=== PATIENT | male | born 1990 | race Caucasian/White ===

== ENCOUNTER 2019-07-05 20:58 | Observation (INO) | payer BC ==
--- NOTE | 2019-07-05 21:17 | ER Document Report ---
ED Medical Screen (RME) - General Chief Complaint: Abdominal Pain Stated Complaint: ABDOMINAL PAIN/COLD SWEATS,DIZZINESS Time Seen by Provider: 07/05/19 21:10 Mode of Arrival: Wheelchair Information source: Patient Notes: 29-year-old male presented to ED for complaint of abdominal pain nausea no vomiting no diarrhea and dizziness. He states he also has had a cough cold congestion runny nose sore throat and it all started this morning. He states he has felt like he has had a fever but has not taken his temperature. He does not have a fever at this time. Patient states he felt like his throat was closing up there he does not have any compromised airway he does have postnasal drip with a red oral mucosa. I have greeted and performed a rapid initial assessment of this patient. A comprehensive ED assessment and evaluation of the patient, analysis of test results and completion of medical decision making process will be conducted by an additional ED providers. TRAVEL OUTSIDE OF THE [place] IN LAST 30 DAYS: No - Related Data Allergies/Adverse Reactions: Penicillins Allergy (Verified 07/05/19 21:09) Physical Exam - Vital signs Vitals: Temp Pulse Resp BP Pulse Ox 98.5 F 53 L 16 138/68 H 98 07/05/19 21:07 07/05/19 21:07 07/05/19 21:07 07/05/19 21:07 07/05/19 21:07 Course - Vital Signs Vital signs: Temp Pulse Resp BP Pulse Ox 98.5 F 53 L 16 138/68 H 98 07/05/19 21:07 07/05/19 21:07 07/05/19 21:07 07/05/19 21:07 07/05/19 21:07
[2019-07-05 21:46] LABS: A TYPE INFLUENZA AG NEGATIVE (NEGATIVE); B INFLUENZA AG NEGATIVE (NEGATIVE)
--- NOTE | 2019-07-05 21:49 | RADIOLOGY REPORT (SQ) ---
EXAM DESCRIPTION: XR ABDOMEN SUPINE AND ERECT WITH CHEST (ABD ACUTE SERIES) COMPLETED DATE/TME: 07/05/2019 21:15 CLINICAL HISTORY: 29 years, Male, Generalized abdominal pain COMPARISON: None. NUMBER OF VIEWS: 4 TECHNIQUE: Single view chest 3 views abdomen LIMITATIONS: None. FINDINGS: Cardiomediastinal silhouette is normal. Lungs are clear. No obstruction or free air. Relatively gasless abdomen. Visualized bones are unremarkable. IMPRESSION: Unremarkable exam. The cause of the patient's abdominal pain is not identified on this examination. copyright 2010 [employer]- All Rights Reserved
[2019-07-05 22:13] LABS: ABSOLUTE LYMPHOCYTES (AUTO) 0.7 10^3/uL (0.5-4.7); ABSOLUTE MONOCYTES (AUTO) 0.5 10^3/uL (0.1-1.4); ABSOLUTE NEUT (AUTO) 11.6 10^3/uL (1.7-8.2); BASOPHILS % (AUTO) 0.1 % (0-2); HEMATOCRIT 47.4 % (37.9-51.0); HEMOGLOBIN 16.7 g/dL (13.5-17.0); LYMPHOCYTES % (AUTO) 5.3 % (13-45); MEAN CORPUSCULAR HEMOGLOBIN 30.4 pg (27.0-33.4); MEAN CORPUSCULAR HGB CONC 35.2 g/dL (32.0-36.0); MEAN CORPUSCULAR VOLUME 86 fl (80-97); PLATELET COUNT 217 10^3/uL (150-450); RED BLOOD COUNT 5.48 10^6/uL (4.35-5.55); RED CELL DISTRIBUTION WIDTH 12.6 % (11.5-14.0); SEGMENTED NEUTROPHILS % (AUTO) 90.6 % (42-78); TOTAL CELLS COUNTED % (AUTO) 100 %; WHITE BLOOD COUNT 12.8 10^3/uL (4.0-10.5)
[2019-07-05 22:18] LABS: APPEARANCE,URINE CLEAR; BILIRUBIN,URINE NEGATIVE (NEGATIVE); COLOR,URINE YELLOW; GLUCOSE, URINE NEGATIVE (NEGATIVE); KETONES,URINE 80 mg/dL (NEGATIVE); PROTEIN,URINE 100 mg/dL (NEGATIVE)
[2019-07-05 22:32] LABS: ALBUMIN 4.8 g/dL (3.5-5.0); ALKALINE PHOSPHATASE 61 U/L (38-126); ANION GAP 14 (5-19); ASPARTATE AMINO TRANSFERASE 28 U/L (17-59); BILIRUBIN,DIRECT 0.3 mg/dL (0.0-0.4); BILIRUBIN,TOTAL 0.6 mg/dL (0.2-1.3); BLOOD UREA NITROGEN 14 mg/dL (7-20); CALCIUM 9.3 mg/dL (8.4-10.2); CARBON DIOXIDE 27 mmol/L (22-30); CHLORIDE 96 mmol/L (98-107); GLUCOSE 158 mg/dL (75-110); POTASSIUM 4.5 mmol/L (3.6-5.0); TOTAL PROTEIN 8.1 g/dL (6.3-8.2)
--- NOTE | 2019-07-06 00:38 | RADIOLOGY REPORT (SQ) ---
EXAM: CT Abdomen and Pelvis With Intravenous Contrast EXAM DATE/TIME: 07/05/2019 11:59 PM CLINICAL HISTORY: The patient is 29 years old and is Male; eval for appendicitis , right lower quadrant pain TECHNIQUE: Axial computed tomography images of the abdomen and pelvis with intravenous contrast. Sagittal and coronal reformatted images were created and reviewed. Delayed images were obtained. This CT exam was performed using one or more of the following dose reduction techniques: automated exposure control, adjustment of the mA and/or kV according to patient size, and/or use of iterative reconstruction technique. COMPARISON: No relevant prior studies available. FINDINGS: LUNG BASES: Unremarkable. No mass. No consolidation. ABDOMEN: LIVER: Unremarkable. No obvious mass. GALLBLADDER AND BILE DUCTS: Unremarkable. No calcified stones. No significant biliary ductal dilatation. PANCREAS: Unremarkable. No ductal dilation. No obvious mass. SPLEEN: Unremarkable. No splenomegaly. ADRENALS: Unremarkable. No adrenal nodules or masses identified. KIDNEYS AND URETERS: Unremarkable. No solid mass. No hydronephrosis. STOMACH AND BOWEL: No evidence of bowel obstruction. No significant bowel wall thickening appreciated. PELVIS: APPENDIX: The appendix is fluid-filled and dilated, measuring 1 cm. Small appendicoliths noted. There is also mild inflammatory stranding adjacent to the distal aspect of the appendix. Findings are compatible with acute appendicitis. BLADDER: Unremarkable. No obvious mass. REPRODUCTIVE: Unremarkable as visualized. ABDOMEN and PELVIS: INTRAPERITONEAL SPACE: Unremarkable. No free air. No abscess. BONES/JOINTS: No acute fracture. No dislocation. SOFT TISSUES: Tiny fat-containing umbilical hernia. VASCULATURE: Unremarkable. No abdominal aortic aneurysm. LYMPH NODES: No significant lymph node enlargement. IMPRESSION: Findings compatible with acute appendicitis. No evidence of rupture.
[2019-07-06] MEDS ORDERED: CLINDAMYCIN 600 MG/D5W RTU 600 MG/50 ML RTUPB IV ONE (01:00)
[2019-07-06] MEDS ORDERED: MORPHINE SULFATE 10 MG/ML INJ IV ONE (01:01)
[2019-07-06] MEDS ORDERED: ONDANSETRON HCL INJ/PF 4 MG/2 ML SDV IV ONE (01:02)
[2019-07-06] MEDS ORDERED: NORMAL SALINE 1000 ML 1,000 ML IV ONE (01:02)
[2019-07-06] MEDS ORDERED: ONDANSETRON HCL INJ/PF 4 MG/2 ML SDV IV PRN (01:25)
[2019-07-06] MEDS ORDERED: RINGERS SOLUTION,LACTATED 1,000 ML IV PRN (01:26)
--- NOTE | 2019-07-06 01:35 | PDOC H&P ---
History of Present Illness Patient complains of: Abdominal pain History of Present Illness: LISA HICKMAN is a 29 year old male Presents emergency department via ground rescue complaining of acute onset abdominal pain approximately 8:00 this morning. This is associated with progression, periumbilical in nature, anorexia but no vomiting, some nausea. He also has some sore throat and thought he was developing a cold. In the emergency department he was found to have abdominal tenderness, poorly localized, with a mild leukocytosis. A CT scan of the abdomen and pelvis showed findings consistent with early appendicitis. Surgery was consulted, patient was advised admission for definitive management. Past Medical History Medical History: None Past Surgical History Past Surgical History: Reports: None Social History Information Source: Patient Smoking Status: Never Smoker Electronic Cigarette use?: No Frequency of Alcohol Use: None Hx Recreational Drug Use: No Hx Prescription Drug Abuse: No Family History Family History: None Parental Family History Reviewed: No Children Family History Reviewed: No Sibling(s) Family History Reviewed.: No Medication/Allergy Home Medications: No Home Medications 07/05/19 Allergies/Adverse Reactions: Penicillins Allergy (Verified 07/05/19 21:09) Review of Systems Constitutional: PRESENT: as per HPI Eyes: ABSENT: visual disturbances Ears: ABSENT: hearing changes Cardiovascular: ABSENT: chest pain, dyspnea on exertion, edema, orthropnea, palpitations Respiratory: PRESENT: cough Gastrointestinal: PRESENT: as per HPI Genitourinary: ABSENT: dysuria, hematuria Musculoskeletal: ABSENT: joint swelling Integumentary: ABSENT: rash, wounds Neurological: ABSENT: abnormal gait, abnormal speech, confusion, dizziness, focal weakness, syncope Psychiatric: ABSENT: anxiety, depression, homidical ideation, suicidal ideation Endocrine: ABSENT: cold intolerance, heat intolerance, polydipsia, polyuria Hematologic/Lymphatic: ABSENT: easy bleeding, easy bruising Physical Exam Vital Signs: Temp Pulse Resp BP Pulse Ox 98.5 F 53 L 16 138/68 H 98 07/05/19 21:07 07/05/19 21:07 07/05/19 21:07 07/05/19 21:07 07/05/19 21:07 Intake & Output 07/04/19 07/05/19 07/06/19 06:59 06:59 06:59 Weight 88.451 kg General appearance: PRESENT: no acute distress Head exam: PRESENT: normocephalic Eye exam: PRESENT: EOMI Mouth exam: PRESENT: dry mucosa Neck exam: PRESENT: full ROM Respiratory exam: PRESENT: clear to auscultation lyle Cardiovascular exam: PRESENT: RRR Pulses: PRESENT: normal carotid pulses, normal radial pulses, normal femoral pulses, normal dorsalis pedis pul GI/Abdominal exam: PRESENT: other - Subtle right lower quadrant tenderness, no rigidity, peritoneal signs. No organomegaly. No hernias. Rectal exam: PRESENT: deferred Extremities exam: PRESENT: full ROM Musculoskeletal exam: PRESENT: full ROM Neurological exam: PRESENT: oriented to person, oriented to place, oriented to time, oriented to situation Psychiatric exam: PRESENT: appropriate affect Skin exam: PRESENT: dry Results Laboratory Results: 07/05/19 22:01 07/05/19 22:01 07/05/19 07/05/19 07/05/19 22:01 22:01 22:01 WBC 12.8 H RBC 5.48 Hgb 16.7 Hct 47.4 MCV 86 MCH 30.4 MCHC 35.2 RDW 12.6 Plt Count 217 Seg Neutrophils % 90.6 H Sodium 136.5 L Potassium 4.5 Chloride 96 L Carbon Dioxide 27 Anion Gap 14 BUN 14 Creatinine 0.85 Est GFR ( Amer) > 60 Glucose 158 H Calcium 9.3 Total Bilirubin 0.6 AST 28 Alkaline Phosphatase 61 Total Protein 8.1 Albumin 4.8 Lipase 67.5 Urine Color YELLOW Urine Appearance CLEAR Urine pH 5.0 Ur Specific [place] 1.040 Urine Protein 100 H Urine Glucose (UA) NEGATIVE Urine Ketones 80 H Urine Blood NEGATIVE Urine RBC (Auto) 0 Impressions: Acute Abdomen Series 07/05/19 21:15 IMPRESSION: Unremarkable exam. The cause of the patient's abdominal pain is not identified on this examination. copyright 2010 [email or web address]- All Rights Reserved Abdomen/Pelvis CT 07/05/19 23:36 IMPRESSION: Findings compatible with acute appendicitis. No evidence of rupture. Assessment & Plan - Diagnosis (1) Acute appendicitis Qualifiers: Acute appendicitis type: unspecified acute appendicitis type Qualified Code(s): K35.80 - Unspecified acute appendicitis Is this a current diagnosis for this admission?: Yes Plan: Impression: Patient has a clinical, laboratory, radiographic findings consistent with acute appendicitis, and dehydration. CT scan demonstrates dilation of the appendix, appendicolith, and periappendiceal stranding, no evidence of rupture. Plan: 1. Admit, IV fluids, n.p.o., intravenous antibiotics 2. We will bring team in at approximately 530 am to perform laparoscopic, possible open appendectomy, 30 minutes, possible drain, benefits and alternatives of the planned procedure explained to the patient including bleeding, infection, need for additional surgery. Patient expresses understanding agrees to proceed. (2) Dehydration Is this a current diagnosis for this admission?: Yes - Time Time Spent: 50 to 70 Minutes Critical Time spent with patient: 15-24 minutes Medications reviewed and adjusted accordingly: Yes Anticipated discharge: Home - Inpatient Certification Based on my medical assessment, after consideration of the patient's comorbidities, presenting symptoms, or acuity I expect that the services needed warrant INPATIENT care.: Yes I certify that my determination is in accordance with my understanding of Medicare's requirements for reasonable and necessary INPATIENT services [42 CFR 412.3e].: Yes Medical Necessity: Need For IV Fluids, Need for Pain Control, Need for IV Antibiotics, Need for Surgery
--- NOTE | 2019-07-06 02:01 | ER Document Report ---
ED General - General Chief Complaint: Abdominal Pain Stated Complaint: ABDOMINAL PAIN/COLD SWEATS,DIZZINESS Time Seen by Provider: 07/05/19 21:10 Mode of Arrival: Wheelchair Information source: Patient TRAVEL OUTSIDE OF THE [place] IN LAST 30 DAYS: No - HPI Onset: Other - started the morning of 07/05/19 Onset/Duration: Gradual Quality of pain: Achy, Cramping Severity: Moderate Pain Level: 4 Associated symptoms: Nausea, Other - decreased PO intake Exacerbated by: Food Relieved by: Denies Similar symptoms previously: No Recently seen / treated by doctor: No Notes: 29 year old male with no significant PMH here for abdominal pain and nausea which started around 8am on 07/05/19. The patient says he went to be the night before that fine but woke up with abdominal pain. He went to work the morning of 07/05/19 and had dizziness and more nausea. The patient did not have much of an appetite throughout the day either. The patient denies known sick contacts, recent travel, recent ingestion of uncooked foods. - Related Data Allergies/Adverse Reactions: Penicillins Allergy (Verified 07/05/19 21:09) Past Medical History - General Information source: Patient - Social History Smoking Status: Never Smoker Frequency of alcohol use: Occasional Drug Abuse: None Family History: None Patient has suicidal ideation: No Patient has homicidal ideation: No Past Surgical History: Reports: None Review of Systems - Review of Systems Constitutional: Other - decreased PO intake EENT: No symptoms reported Cardiovascular: No symptoms reported Respiratory: No symptoms reported Gastrointestinal: Abdominal pain, Nausea Genitourinary: No symptoms reported Male Genitourinary: No symptoms reported Musculoskeletal: No symptoms reported Skin: No symptoms reported Hematologic/Lymphatic: No symptoms reported Neurological/Psychological: No symptoms reported -: Yes All other systems reviewed and negative Physical Exam - Vital signs Vitals: Temp Pulse Resp BP Pulse Ox 98.5 F 53 L 16 138/68 H 98 07/05/19 21:07 07/05/19 21:07 07/05/19 21:07 07/05/19 21:07 07/05/19 21:07 - Notes Notes: GENERAL: Well-appearing, well-nourished and in no acute distress. HEAD: Atraumatic, normocephalic. EYES: Pupils equal round and reactive to light, extraocular movements intact, sclera anicteric, conjunctiva are normal. ENT: Nares patent, oropharynx clear without exudates. Moist mucous membranes. NECK: Normal range of motion, supple without lymphadenopathy or JVD. LUNGS: Breath sounds clear to auscultation bilaterally and equal. No wheezes rales or rhonchi. HEART: Regular rate and rhythm without murmurs, rubs or gallops. ABDOMEN: Soft, mild tenderness in epigastric area, normoactive bowel sounds. No guarding, no rebound. No masses appreciated. EXTREMITIES: Normal range of motion, no pitting or edema. No clubbing or cyanosis. NEUROLOGICAL: Cranial nerves II through XII grossly intact. Normal speech, normal gait. PSYCH: Normal mood, normal affect. SKIN: Warm, Dry, normal turgor, no rashes or lesions noted. Course - Re-evaluation Re-evalutation: 07/06/19 02:03 The patient has acute appendicitis on CT without perforation. Dr. Lockett was consulted and he saw the patient in the ER and admitted him to his service. The patient was given a dose of Clindamycin at the request of Dr. Lockett. - Vital Signs Vital signs: Temp Pulse Resp BP Pulse Ox 98 F 71 16 145/71 H 96 07/06/19 01:30 07/06/19 01:30 07/06/19 01:30 07/06/19 01:30 07/06/19 01:30 - Laboratory Result Diagrams: 07/05/19 22:01 07/05/19 22:01 Laboratory results interpreted by me: 07/05/19 07/05/19 07/05/19 22:01 22:01 22:01 WBC 12.8 H Lymph % (Auto) 5.3 L Absolute Neuts (auto) 11.6 H Seg Neutrophils % 90.6 H Sodium 136.5 L Chloride 96 L Glucose 158 H Urine Protein 100 H Urine Ketones 80 H Urine Urobilinogen 2.0 H Urine Ascorbic Acid 40 H - Diagnostic Test Radiology reviewed: Image reviewed, Reports reviewed Discharge - Discharge Clinical Impression: Appendicitis Qualifiers: Appendicitis type: acute appendicitis Acute appendicitis type: other Qualified Code(s): K35.890 - Other acute appendicitis without perforation or gangrene; K35.89 - Other acute appendicitis Condition: Stable Disposition: ADMITTED OBSERVATION Admitting Provider: Surgicalist Unit Admitted: Surgical Floor
[2019-07-06] MEDS: CLINDAMYCIN 600 MG/D5W RTU 600 MG/50 ML RTUPB IV SCH ×2 (05:02→13:47)
[2019-07-06] MEDS ORDERED: BUPIVACAINE HCL 0.25 % INJ/PF (2.5 MG/1 ML) 30 ML VIAL ONE (05:38)
[2019-07-06] MEDS ORDERED: DEXAMETHASONE SOD PHOSPHATE INJ 4 MG/1 ML VIAL ONE (05:45)
[2019-07-06] MEDS ORDERED: ONDANSETRON HCL INJ/PF 4 MG/2 ML SDV ONE (05:45)
[2019-07-06] MEDS ORDERED: HYDROMORPHONE HCL INJ/PF 2 MG/ML AMPULE ONE (05:45)
[2019-07-06] MEDS ORDERED: FENTANYL CITRATE INJ/PF 100 MCG/2 ML AMPUL ONE (05:45)
[2019-07-06] MEDS ORDERED: MIDAZOLAM 2 MG/2 ML INJ ONE (05:45)
[2019-07-06] MEDS ORDERED: LIDOCAINE 2% INJ-PF (20 MG/ML) 10 ML AMPUL ONE (05:45)
[2019-07-06] MEDS ORDERED: PROPOFOL INJ 200 MG/20 ML VIAL IV ONE (05:46)
[2019-07-06] MEDS ORDERED: NEOSTIGMINE METHYLSULFATE 10 MG/10 ML VIAL ONE (06:00)
[2019-07-06] MEDS ORDERED: KETOROLAC TROMETHAMINE 60 MG/2 ML SDV ONE (06:00)
[2019-07-06] MEDS ORDERED: GLYCOPYRROLATE 1 MG/5 ML VIAL ONE (06:00)
[2019-07-06] MEDS ORDERED: CLINDAMYCIN PHOSPHATE INJ 300 MG/2 ML SDV ONE (06:17)
[2019-07-06] MEDS ORDERED: ACETAMINOPHEN WITH CODEINE #3 TABLET PO PRN (06:47)
--- NOTE | 2019-07-06 06:53 | Operative Report ---
Operative Report DATE OF SURGERY: 07/06/19 PREOPERATIVE DIAGNOSIS: Acute appendicitis POSTOPERATIVE DIAGNOSIS: Same OPERATION: Laparoscopic appendectomy SURGEON: CAMRYN HANSEN ANESTHESIA: GA TISSUE REMOVED OR ALTERED: 1 appendix COMPLICATIONS: None ESTIMATED BLOOD LOSS: 50 cc INTRAOPERATIVE FINDINGS: See below PROCEDURE: After obtaining informed consent, the patient was taken from the preop holding her to the main operating room and general anesthesia was induced. A Wood catheter was inserted. The abdomen was prepped and draped in a sterile fashion with Betadine. Surgical plan surgical timeout were conducted. Markings were made on the skin for 3 port laparoscopy. The skin was anesthetized at all 3 sites, and a small supraumbilical vertical incision was made with a 15 blade. A Veress needle was inserted into the peritoneal cavity and pneumoperitoneum was established. The Veress needle was removed, 5 mm ports inserted and a 5 mm flexible viewing scope was inserted. Under direct visualization 2 additional ports were placed, one 5 mm in the suprapubic position, 12 mm in the left lower quadrant. Findings were significant for acute appendicitis, with a retrocecal appendix. The terminal ileum was adhesed to the right posterior lateral pelvic sidewall and this was freed up with sharp scissors. We were now able to place a grasper on the appendix and elevated into the free peritoneal space. A suitable site for separation of the appendix from the mesoappendix at the appendiceal base was identified. A large grasper was placed through the mesoappendix, thereby isolating these 2 structures. We now brought onto the field a non-, blue load, 45 mm [place] stapler. The appendix was amputated at its base with a single firing. The mesoappendix was elevated off of the associated terminal ileum and cecum very easily. We now brought the stapler back onto the field and fired it across the mesoappendix successfully. The appendix was placed in a Endobag and brought out of the patient to the left lower quadrant port site. We now elevated the mesoappendix and use electrocautery to very elegantly control a small arterial bleeder from the staple line. Photos were taken of the staple line of the mesoappendix, as well as the appendiceal stump. At this point felt the operation was complete. There was no bleeding from the appliance. We did irrigate out the residual blood and aspirated successfully. The patient was leveled out, again checked for any residual fluid and there was none. At this point felt the operation was complete and all ports removed, pneumoperitoneum evacuated wounds closed with 0 Vicryl, 3-0 Vicryl benzoin and Steri-Strips. Patient tolerated the procedure well, extubated, Wood catheter removed, patient taken to recovery room in stable condition.
[2019-07-06] MEDS: ACETAMINOPHEN INJ/PF 1000 MG/100 ML SDV IV SCH ×2 (13:42→13:47)
--- NOTE | 2019-07-06 14:18 | PDOC DISCHARGE SUMMARY ---
General - Admit/Disc Date/PCP Admission Date/Primary Care Provider: 07/06/19 02:18 Discharge Date: 07/06/19 - Discharge Diagnosis Final Diagnosis: acute appendicitis - Assessment Summary: Patient admitted this morning with abdominal pain CT scan confirmed acute appendicitis was taken to the operating where he underwent a laparoscopic appendectomy. Postoperatively he received his IV antibiotics did well postoperatively afternoon after surgery he was doing well able to ambulate tolerating soft diet and ready for discharge home. He will be discharged home today with instructions to follow-up in 1 week after discharge. He is okay to shower and leave the Steri-Strips intact. We will be given pain medication postoperatively Percocet. Final diagnosis is acute appendicitis. - Additional Information Resuscitation Status: Full Code Referrals: [facility] [Provider Group] - 07/13/19 8:15 am (Appointment is with Dr Lockett.) Prescriptions: Oxycodone HCl/Acetaminophen [Percocet 7.5-325 mg Tablet] 1 - 2 tab PO ASDIR PRN #15 tab PRN Reason: Home Medications: Oxycodone HCl/Acetaminophen [Percocet 7.5-325 mg Tablet] 1 - 2 tab PO ASDIR PRN #15 tab 07/06/19 History of Present Illiness History of Present Illness: LISA HICKMAN is a 29 year old male Physical Exam Vital Signs: Temp Pulse Resp BP Pulse Ox 97.6 F 98 12 128/60 H 94 07/06/19 10:25 07/06/19 10:25 07/06/19 10:25 07/06/19 10:25 07/06/19 10:25 Intake & Output 07/05/19 07/06/19 07/07/19 06:59 06:59 06:59 Intake Total 1050 2600 Output Total 5 Balance 1050 2595 Weight 88.451 kg 90.9 kg Results Laboratory Results: WBC 12.8 10^3/uL (4.0-10.5) H 07/05/19 22:01 RBC 5.48 10^6/uL (4.35-5.55) 07/05/19 22:01 Hgb 16.7 g/dL (13.5-17.0) 07/05/19 22:01 Hct 47.4 % (37.9-51.0) 07/05/19 22:01 MCV 86 fl (80-97) 07/05/19 22: MCH 30.4 pg (27.0-33.4) 07/05/19 22: MCHC 35.2 g/dL (32.0-36.0) 07/05/19 22: RDW 12.6 % (11.5-14.0) 07/05/19 22:01 Plt Count 217 10^3/uL (150-450) 07/05/19 22: Lymph % (Auto) 5.3 % (13-45) L 07/05/19 22: [place] % (Auto) 4.0 % (3-13) 07/05/19: Eos % (Auto) 0.0 % (0-6) 07/05/19: Baso % (Auto) 0.1 % (0-2) 07/05/19 22: Absolute Neuts (auto) 11.6 10^3/uL (1.7-8.2) H 07/05/19 22: Absolute Lymphs (auto) 0.7 10^3/uL (0.5-4.7) 07/05/19 22: Absolute Monos (auto) 0.5 10^3/uL (0.1-1.4) 07/05/19 22: Absolute Eos (auto) 0.0 10^3/uL (0.0-0.6) 07/05/19 22: Absolute Basos (auto) 0.0 10^3/uL (0.0-0.2) 07/05/19 22: Seg Neutrophils % 90.6 % (42-78) H 07/05/19 22: Sodium 136.5 mmol/L (137-145) L 07/05/19 22: Potassium 4.5 mmol/L (3.6-5.0) 07/05/19 22: Chloride 96 mmol/L (98-107) L 07/05/19 22: Carbon Dioxide 27 mmol/L (22-30) 07/05/19 22: Anion Gap 14 (5-19) 07/05/19 22: BUN 14 mg/dL (7-20) 07/05/19 22: Creatinine 0.85 mg/dL (0.52-1.25) 07/05/19 22:01 Est GFR ( Amer) > 60 (>60) 07/05/19 22:01 Est GFR (MDRD) Non-Af > 60 (>60) 07/05/19 22:01 Glucose 158 mg/dL (75-110) H 07/05/19 22:01 Calcium 9.3 mg/dL (8.4-10.2) 07/05/19 22: Total Bilirubin 0.6 mg/dL (0.2-1.3) 07/05/19 22: Direct Bilirubin 0.3 mg/dL (0.0-0.4) 07/05/19 22:01 Neonat Total Bilirubin Not Reportable 07/05/19 22: Neonat Direct Bilirubin Not Reportable 07/05/19 22: Neonat Indirect Bili Not Reportable 07/05/19 22:01 AST 28 U/L (17-59) 07/05/19 22: ALT 34 U/L (<50) 07/05/19 22: Alkaline Phosphatase 61 U/L (38-126) 07/05/19 22:01 Total Protein 8.1 g/dL (6.3-8.2) 07/05/19 22: Albumin 4.8 g/dL (3.5-5.0) 07/05/19 22: Lipase 67.5 U/L (23-300) 07/05/19 22:01 Urine Color YELLOW 07/05/19 22: Urine Appearance CLEAR 07/05/19 22: Urine pH 5.0 (5.0-9.0) 07/05/19 22: Ur Specific [place] 1.040 07/05/19 22:01 Urine Protein 100 mg/dL (NEGATIVE) H 07/05/19 22:01 Urine Glucose (UA) NEGATIVE mg/dL (NEGATIVE) 07/05/19 22: Urine Ketones 80 mg/dL (NEGATIVE) H 07/05/19 22: Urine Blood NEGATIVE (NEGATIVE) 07/05/19 22: Urine Nitrite (Reflex) NEGATIVE (NEGATIVE) 07/05/19 22:01 Urine Bilirubin NEGATIVE (NEGATIVE) 07/05/19 22: Urine Urobilinogen 2.0 mg/dL (<2.0) H 07/05/19 22:01 Leukocyte Esterase Rfl NEGATIVE (NEGATIVE) 07/05/19 22:01 Urine RBC (Auto) 0 /HPF 07/05/19 22:01 Urine WBC (Reflex) 1 /HPF 07/05/19 22:01 Squamous Epi Cells Auto <1 /HPF 07/05/19 22:01 Urine Mucus (Auto) MANY /LPF 07/05/19 22:01 Urine Ascorbic Acid 40 (NEGATIVE) H 07/05/19 22:01 Influenza A (Rapid) NEGATIVE (NEGATIVE) 07/05/19 21:13 Influenza B (Rapid) NEGATIVE (NEGATIVE) 07/05/19 21:13 Group A Strep Rapid NEGATIVE (NEGATIVE) 07/05/19 21:13 Impressions: Acute Abdomen Series 07/05/19 21:15 IMPRESSION: Unremarkable exam. The cause of the patient's abdominal pain is not identified on this examination. copyright 2010 [employer]- All Rights Reserved Abdomen/Pelvis CT 07/05/19 23:36 IMPRESSION: Findings compatible with acute appendicitis. No evidence of rupture.
[2019-07-06 16:58] VITALS: BP 139/67
== END 2019-07-06 17:06 | disposition home or self-care (01) ==
LOC: ER 20:58 → EH 07-06 02:18 → 4S 07-06 08:11
PROVIDERS: ADMIT Surgery; ATTEND Surgery
DX: K35.30 Acute appendicitis with localized peritonitis, without perforation or gangrene (principal); E86.0 Dehydration; R09.82 Postnasal drip; R05 Cough; J02.9 Acute pharyngitis, unspecified; Z88.0 Allergy status to penicillin
CPT/HCPCS: 99285; 96375; 96365; 36415; 87070; 87880; 83690; 85025; 80053; 81001; 87804; 88304 ×2; 74022; 74177; 00840; 44970; G0378 ×2; J2250; J3490 ×3; J1100; J1885; J3010; J2270; J2710; J1170; J2405; J7030; J7120; J2704; J0131; 840